=== PATIENT | female | born 1985 | race Caucasian/White ===

== ENCOUNTER 2024-09-23 15:26 | Emergency (ER) | payer BC ==
[~2024-09-23] VITALS: Ht 165.1 cm; Wt 83.0 kg
[2024-09-23] MEDS ORDERED: Ondansetron HCl 2 MG / ML 2ML Vial IV PRN (15:55)
[2024-09-23] MEDS ORDERED: NS 1,000 ML IV SCH (15:55)
[2024-09-23 16:27] LABS: BASOPHILS ABSOLUTE AUTO 0.03 K/mm3 (0.00-0.23); BASOPHILS PERCENT AUTO 1 % (0-2); EOSINOPHILS ABSOLUTE AUTO 0.16 K/mm3 (0.00-0.68); EOSINOPHILS PERCENT AUTO 3 % (0-6); Hematocrit 34.4 % (33.0-51.0); Hemoglobin 12.6 g/dL (11.5-16.0); IMMATURE GRAN ABSOLUTE AUTO 0.03 K/mm3 (0.00-0.10); IMMATURE GRAN PERCENT AUTO 1 % (0-1); LYMPHOCYTES ABSOLUTE AUTO 0.83 K/mm3 (0.84-5.20); LYMPHOCYTES PERCENT AUTO 16 % (21-46); MONOCYTES ABSOLUTE AUTO 0.19 K/mm3 (0.16-1.47); MONOCYTES PERCENT AUTO 4 % (4-13); Mean Corpuscular HGB 33.4 pg (26.0-34.0); Mean Corpuscular HGB Conc 36.6 g/dL (31.5-36.5); Mean Corpuscular Volume 91 fL (80-100); Mean Platelet Volume 9.2 fL (9.1-12.4); NEUTROPHILS ABSOLUTE AUTO 4.02 K/mm3 (1.96-9.15); NEUTROPHILS PERCENT AUTO 76 % (41-73); Platelet Count 224 K/mm3 (150-400); RDW Standard Deviation 39.9 fL (35.1-46.3); Red Blood Cell Count 3.77 M/mm3 (3.80-5.20); White Blood Cell Count 5.26 K/mm3 (4.00-11.30)
[2024-09-23 16:49] LABS: Albumin, Blood 3.1 g/dL (3.4-5.0); Albumin/Globulin Ratio 1.1 (0.8-1.8); Bilirubin, Total 0.6 mg/dL (0.1-1.0); Bun/Creatinine Ratio 13.7 (12.0-20.0); Calcium, Blood 8.5 mg/dL (8.5-10.1); Creatinine, Blood 0.87 mg/dL (0.40-1.00); Globulin, Blood 2.9 g/dL (2.2-4.0); Potassium, Blood 3.2 mmol/L (3.5-5.5)
[2024-09-23 18:55] LABS: Source, Urine Clean Catch
[2024-09-23 19:02] LABS: Appearance, Urine Clear (Clear); Bilirubin, Urine Neg (Neg); Blood, Urine Neg (Neg); Color, Urine Yellow (P-Yellow); Glucose Qualitative, Urine Neg (Neg); Ketones, Urine Neg (Neg); Leukocyte Esterase, Urine 2+ (Neg); Nitrite, Urine Neg (Neg); Protein, Urine Neg (Neg); Urobilinogen, Urine NORM (Normal)
[2024-09-23 19:11] LABS: Bacteria Many /hpf; Red Blood Cells, Urine 0-2 /hpf (0-2); Squamous Epithelial Cells Mod /hpf (Few)
[2024-09-23] MEDS ORDERED: Potassium Chloride 10 Meq Tablet SA PO ONE (21:25)
[2024-09-23] MEDS ORDERED: Potassium Chloride 20 MEQ TabCR PO ONE (21:30)
[2024-09-23] MEDS ORDERED: Ciprofloxacin 400MG/D5 200ML 200 ML IV ONE (21:30)
[2024-09-23] MEDS ORDERED: NS 1,000 ML IV ONE (21:37)
[2024-09-23] MEDS ORDERED: Potassium Chl 10MEQ/Water100ML 100 ML IV ONE (21:40)
[2024-09-23] MEDS ORDERED: Morphine Sulfate 4 MG/1 ML Injection IV ONE (23:15)
[2024-09-23] MEDS ORDERED: ONDA4ODT MM (23:21)
[2024-09-23] MEDS ORDERED: CIPR500 PO (23:21)
== END 2024-09-24 00:06 | disposition home or self-care (01) ==
LOC: ER 15:26
PROVIDERS: Emergency Medicine
DX: N12 Tubulo-interstitial nephritis, not specified as acute or chronic (principal); Z88.1 Allergy status to other antibiotic agents
CPT/HCPCS: 74177; 80053; 81001; 83690; 85025; 87086; 96374-59; 96375; 99284-25; A9270; J0744; J2270; J2405; J3480; J7030; Q9967

== ENCOUNTER → 2024-09-23 | Outpatient (CLI) | payer BC ==
[~2024-09-23] MED LIST: CIPR500 PO; ONDA4ODT MM
== END | disposition home or self-care (01) ==
LOC: LAB SHORT 15:22 → LAB 15:22
DX: R30.0 Dysuria (principal); R35.0 Frequency of micturition
CPT/HCPCS: 87086